=== PATIENT | female | born 1940 | race Caucasian/White ===

== ENCOUNTER 2024-05-23 14:06 | Inpatient (IN) | payer MEDICARE ==
[~2024-05-23] VITALS: Ht 165.1 cm; Wt 79.6 kg
[2024-05-23] MEDS ORDERED: LOSARTAN POTAS100 MG PO (14:19)
[2024-05-23] MEDS ORDERED: METOPROLOL SUCC50 MG PO (14:20)
[2024-05-23] MEDS ORDERED: AMLODIPINE BES2.5 MG PO (14:20)
[2024-05-23] MEDS ORDERED: OMEPRAZOLE20 MG PO (14:20)
[2024-05-23] MEDS ORDERED: HYDRALAZINE HCL25 MG PO (14:21)
[2024-05-23 14:26] LABS: BASOPHILS 1.2 % (0-2); EOSINOPHILS 3.7 % (0-6); HEMATOCRIT 33.4 % (35.0-50.0); HEMOGLOBIN 11.8 g/dL (12.0-18.0); LYMPHOCYTES 20.2 % (24-44); MCH 32.1 (27-36); MCHC 35.3 g/dl (30-36); MCV 90.9 fl (81-99); MONOCYTES 8.7 % (0-12); NEUTROPHILS 66.2 % (39-80); PLATELET COUNT 365 K/uL (140-440); RBC 3.67 M/ul (4.3-5.7)
[2024-05-23 14:41] LABS: ALBUMIN/GLOBULIN RATIO 1.03 (1.1-2.4); ANION GAP 16.7 (7-21); BILIRUBIN, TOTAL 0.7 ng/dL (0.2-1.0); BUN/CREATININE RATIO 11.29 (6.0-28.6); CALCIUM 9.6 mg/dL (8.5-10.1); CREATININE, SERUM 1.24 mg/dL (0.55-1.02); POTASSIUM 3.7 mmol/L (3.5-5.1); PROTEIN, TOTAL 7.9 g/dL (6.4-8.2)
[2024-05-23 16:05] LABS: BILIRUBIN, URINE POSITIVE (negative); BLOOD/HGB, URINE TRACE-L (Negative); KETONE, URINE SMALL (Negative); LEUK ESTERASE, URINE NEGATIVE (negative); NITRITE, URINE NEGATIVE (negative)
[2024-05-23 16:11] LABS: CRYSTALS, URINE NONE SEEN (0-1+); RED BLOOD CELLS, URINE 0-1 /hpf (0-5); WHITE BLOOD CELLS, URINE 21-40 /HPF (0-5)
[2024-05-23 16:12] LABS: BACTERIA, URINE RARE /hpf (negative)
[2024-05-23 16:14] LABS: CASTS, URINE HYALINE 1+ \\lpf; COLLECTION TYPE, URINE CLEAN CATCH; REFLEX CULTURE, URINE No (No)
[2024-05-23] MEDS ORDERED: METOPROLOL SUCCINATE 25 MG TABCR PO ONE ×2 (16:15→16:30)
[2024-05-23] MEDS ORDERED: hydrALAZINE HCL 20 MG/ML VIAL IV ONE (16:15)
[2024-05-23] MEDS ORDERED: ADENOSINE 3 MG/ML VIAL ONE (17:59)
[2024-05-23] MEDS ORDERED: dilTIAZem HCL 25 MG/5 ML VIAL IV ONE ×2 (18:15→20:00)
[2024-05-23] MEDS ORDERED: SODIUM CHLORIDE 0.9% 1,000 ML IV PRN (18:15)
[2024-05-23] MEDS ORDERED: ADENOSINE 3 MG/ML VIAL IV ONE (18:15)
[2024-05-23] MEDS ORDERED: DILTIAZEM HCl/D5W 125 ML IV SCH (19:45)
[2024-05-23] MEDS ORDERED: SODIUM CHLORIDE 0.9% 1,000 ML IV SCH (20:15)
[2024-05-23] MEDS ORDERED: MAGNESIUM SULFATE 2 GM/50 ML BAG IV ONE (20:45)
[2024-05-23] MEDS ORDERED: METOPROLOL SUCCINATE 100 MG TABCR PO SCH (20:57)
[2024-05-23] MEDS ORDERED: APIXABAN 5 MG TAB PO SCH (21:00)
--- NOTE | 2024-05-23 21:05 | NUR ---
PATIENT TO ROOM 127 VIA [facility] AFTER REPORT FROM ED RN CECILIA RECEIVED. PATIENT AMBULATED WITH SBA TO BED FROM [facility]. TOLERATED WELL. AOX3. INTRODUCED TO NURSING STAFF, ORIENTED TO ROOM AND CALL LIGHT FUNCTIONS AND SAFETY EDUCATION PROVIDED. PATIENT VERBALIZED UNDERSTANDING.
[2024-05-23 21:08] VITALS: BP 159/144; BP 178/57
[2024-05-23] MEDS ORDERED: METOPROLOL TARTRATE 50 MG TAB PO SCH (21:15)
[2024-05-23] MEDS ORDERED: ACETAMINOPHEN 325 MG TAB PO PRN (21:30)
[2024-05-23] MEDS ORDERED: ondansetron HCL 4 MG/2 ML VIAL IV PRN (21:30)
[2024-05-23 22:00] VITALS: BP 176/66
[2024-05-23] MEDS ORDERED: PANTOPRAZOLE SODIUM 40 MG TABEC PO SCH (22:15)
[2024-05-23 22:30] VITALS: BP 180/57
[2024-05-23] MEDS ORDERED: hydrALAZINE HCL 20 MG/ML VIAL IV PRN (22:30)
[2024-05-23 23:00] VITALS: BP 176/65
[2024-05-23 23:15] VITALS: BP 157/88
[2024-05-24] VITALS (15 sets, daily range): BP systolic 125–186; BP diastolic 40–115
--- NOTE | 2024-05-24 00:38 | NUR ---
PATIENT USED CALL LIGHT FOR ASSISTANCE UP TO COMMODE. PATIENT COMPLAINS OF MILD HEADACHE, DOES NOT ASSIGN NUMERICAL VALUE AND ALSO DECLINES TYLENOL. ASSESSMENT CHARTED. ASSISTED WITH POSITIONING ONCE BACK IN BED. CALL LIGHT IN REACH; BED EXIT ALARM ON.
--- NOTE | 2024-05-24 01:50 | NUR ---
PATIENT RESTING IN BED WITH EYES CLOSED. RESPIRATIONS EVEN AND UNLABORED. REMAINS IN SINUS RHYTHM, HR IN THE 60S. CALL LIGHT IN REACH, BED EXIT ALARM ON.
--- NOTE | 2024-05-24 02:50 | NUR ---
PATIENT USED CALL LIGHT TO REQUEST ASSISTANCE GETTING UP TO VOID. AMBULATED TO BATHROOM, TOLERATED ACTIVITY WELL. HR REMAINED IN THE 70S, SINUS RHTHYM. BACK TO BED. C/O OF DISCOMFORT IN HOSPITAL BED. OFFERED PILLOW SUPPORT BUT PATIENT DECLINED. DENIES OTHER NEEDS AT THIS TIME. CALL LIGHT IN REACH.
--- NOTE | 2024-05-24 04:40 | NUR ---
PATIENT AWAKE IN BED. ASSESSMENT CHARTED. PATIENT COMPLAINS OF HEADACHE. FACE APPEARS FLUSHED. 0400 BP WAS 186/60. PRN HYDRALAZINE ORDERED FOR SBP > 190. CONTINUE TO TREND BP Q1H. PATIENT ALSO COMPLAINS OF GENERALIZED ACHES FROM DISCOMFORT IN BED. OUT OF BED TO CHAIR. WARM BLANKETS PROVIDED WELL PILLOW SUPPORT. PATIENT REPORTS IMPROVEMENT IN HER GENERALIZED ACHES WHILE UP. PATIENT IS IN SINUS BRADYCARDIA ON TELEMETRY WITH HR IN THE HIGH 50S. REMAINS ON ROOM AIR WITH O2 SATS 97-99%. CALL LIGHT IN REACH.
--- NOTE | 2024-05-24 05:15 | NUR ---
LAB IN ROOM TO DRAW BLOOD AND NOTED BLOOD ON BLANKET. THIS RN TO ROOM AND FOUND LEUER FROM IV DISCONNECTED. IV SCRUBBED WITH ALCOHOL WIPE AND NEW LEUER PLACED. GOOD BLOOD RETURN FROM IV AND FLUSHES EASILY. WARM BLANKETS PROVIDED. PATIENT REFUSED GOWN CHANGE AT THIS TIME.
--- NOTE | 2024-05-24 05:18 | NUR ---
LATE ENTRY FROM 05/23/24 21:30 PATIENT HAD NS BOLUS ORDER FROM ED. PATIENT RECEIVED FROM ED WITH IVF RUNNING AT 100ML/HR. REVIEWED ORDER WITH DR. HYATT. ORDER RECEIVED TO CONTINUE AT 100ML/HR X1 LITER CURRENTLY INFUSING.
[2024-05-24 05:29] LABS: BASOPHILS 1.4 % (0-2); EOSINOPHILS 5.8 % (0-6); HEMATOCRIT 27.1 % (35.0-50.0); HEMOGLOBIN 9.5 g/dL (12.0-18.0); LYMPHOCYTES 15.3 % (24-44); MCH 31.5 (27-36); MCHC 35.1 g/dl (30-36); MCV 89.8 fl (81-99); MONOCYTES 9.3 % (0-12); NEUTROPHILS 68.2 % (39-80); PLATELET COUNT 298 K/uL (140-440); RBC 3.02 M/ul (4.3-5.7); RDW 12.9 (10.5-15.0)
[2024-05-24 05:39] LABS: ANION GAP 11.4 (7-21); BUN/CREATININE RATIO 11.32 (6.0-28.6); CALCIUM 8.9 mg/dL (8.5-10.1); CREATININE, SERUM 1.06 mg/dL (0.55-1.02); MAGNESIUM 1.7 mg/dL (1.8-2.4); POTASSIUM 3.4 mmol/L (3.5-5.1)
--- NOTE | 2024-05-24 06:15 | NUR ---
PATIENT UP TO BATHROOM TO VOID. REPORTS HEADACHE HAS IMPROVED. FACE NO LONGER FLUSHED. BACK TO CHAIR. CALL LIGHT IN REACH.
[2024-05-24] MEDS ORDERED: MAGNESIUM SULFATE 2 GM/50 ML BAG IV SCH (07:00)
[2024-05-24] MEDS ORDERED: POTASSIUM CHLORIDE 10 MEQ TABCR PO ONE ×2 (07:00→12:00)
--- NOTE | 2024-05-24 08:30 | NUR ---
Assessment complete and medications administered. Patient up to BR to void and then back to bed. Breakfast tray delivered. IV magnesium infusing per order. Coffee and water provided. Pt VSS, A+O, on RA. geospatial technologist in room at this time.
[2024-05-24] MEDS ORDERED: PANTOPRAZOLE SODIUM 40 MG TABEC PO SCH (09:00)
[2024-05-24] MEDS ORDERED: FLU VACC TS2024(65UP)/MF59C/PF 1 EACH SYR IM SCH (09:00)
[2024-05-24] MEDS ORDERED: AMLODIPINE BESYLATE 10 MG TAB PO SCH (09:00)
[2024-05-24] MEDS ORDERED: LOSARTAN POTASSIUM 50 MG TAB PO SCH (09:00)
[2024-05-24] MEDS ORDERED: LOSARTAN POTASSIUM 100 MG TAB PO SCH (09:00)
[2024-05-24] MEDS ORDERED: AMLODIPINE BESYLATE 5 MG TAB PO SCH (09:00)
--- NOTE | 2024-05-24 10:30 | NUR ---
Patient saline locked post mag rider infusion. Fresh water provided, up to BR for void. No further needs. Call light in reach.
[2024-05-24] MEDS ORDERED: PHARMACY RENAL DOSE ADJUSTMENT 1 DOSE MISC PO SCH (12:00)
[2024-05-24] MEDS ORDERED: hydrALAZINE HCL 25 MG TAB PO SCH (12:28)
--- NOTE | 2024-05-24 12:30 | NUR ---
Patient resting in bed with eyes closed, even and unlabored respirations. pt expressed desire to nap after "not great sleep last night", allowed at this time, made plan for therapies later.
[2024-05-24] MEDS ORDERED: POTASSIUM CHLORIDE 10 MEQ TABCR ONE (14:13)
[2024-05-24] MEDS ORDERED: hydrALAZINE HCL 10 MG TABLET PO SCH (14:20)
--- NOTE | 2024-05-24 15:15 | NUR ---
Patient up with physical therapy in room and walked in hallway. Linens changed after patient/RN soap and water wipedown in bathroom. Pt tolerates well in NSR. VSS. Fresh water provided. Pt requests something to eat, kitchen makes deli sandwich for pt. No further needs at this time.
--- NOTE | 2024-05-24 17:05 | NUR ---
Dinner tray in to patient, resting in bed, no needs at this time. VSS.
--- NOTE | 2024-05-24 20:46 | NUR ---
SHIFT REPORT RECEIVED FROM JAVIRE CARRERA. PATIENT UP TO BR TO VOID USING CANE. INDEPENDENTLY PERFORMED HS CARES. AO X3. REPORTS MILD HEADACHE BUT DECLINES PRN TYLENOL. BACK TO BED. VS CHARTED AND HS MEDICATIONS GIVEN AFTER HR AND BP REVIEWED FOR PARAMETERS. FRESH WATER PROVIDED. CALL LIGHT IN REACH.
[2024-05-24] MEDS ORDERED: MELATONIN 3 MG TAB PO SCH (21:00)
--- NOTE | 2024-05-24 22:14 | NUR ---
PATIENT ATTEMPTED TO GET UP WITHOUT ASSISTANCE. BED ALARM ACTIVATED. ASSISTED PATIENT UP TO BR TO VOID. BACK TO BED. DENIES FURTHER NEEDS OR CONCERNS. CALL LIGHT IN REACH AND BED ALARM ON. RE-EDUCATED ON CALLING FOR ASSISTANCE TO GET UP. PATIENT VERBALIZED UNDERSTANDING.
--- NOTE | 2024-05-24 23:02 | NUR ---
PATIENT RESTING IN BED WITH EYES CLOSED. RESPIRATIONS EVEN AND UNLABORED. SINUS DAY IN THE HIGH 50S OCCASIONALLY LOW 60S ON TELEMETRY. SPO2 98% RA. CALL LIGHT IN REACH WITH BED EXIT ALARM ON.
[2024-05-25] VITALS (9 sets, daily range): BP systolic 138–190; BP diastolic 49–71
--- NOTE | 2024-05-25 01:05 | NUR ---
PATIENT USED CALL LIGHT TO REQUEST ASSISTANCE UP TO BR TO VOID. VOIDED 250ML. BACK TO BED. LL LEAD NOTED TO HAVE COME OFF. REPLACED ALL LEADS T WAVE MORPHOLOGY APPEARED TO HAVE CHANGED. PATIENT DENIES CHEST PAIN OR SOB. DOES ENDORSE CONTINUES BACK PAIN FROM THE HOSPITAL BED. REVIEWED TELEMETRY AFTER LEADS REPLACED AND PATIENT SETTLED IN BED; APPEARS TO HAVE RETURN TO PREVIOUS MORPHOLOGY.
--- NOTE | 2024-05-25 03:04 | NUR ---
ST ELEVATION ALARMS NOTED ON TELEMETRY. EKG OBTAINED. PATIENT DENIES CHEST PAIN, NAUSEA, OR SOB. DENIES PAIN IN SHOULDERS OR ARMS BUT DOES CONTINUE TO ENDORSE BACK PAIN; HOWEVER, REPORTS IT IS ONGOING SINCE ADMISSION D/T DISCOMFORT FROM HOSPITAL BED. DR. HYATT NOTIFIED AND EKG SENT TO PROVIDER TO REVIEW BY MEDICAL SOCIOLOGIST.
--- NOTE | 2024-05-25 03:14 | NUR ---
DR. HYATT REVIEWED EKG. ORDER RECEIVED TO ADD ON TROPONIN LEVEL TO AM LABS.
--- NOTE | 2024-05-25 03:26 | NUR ---
PATIENT UP TO BR TO VOID 300ML CLEAR YELLOW URINE. UP TO CHAIR AFTER BATHROOM. WARM BLANKETS PROVIDED, FRESH WATER GIVEN. PATIENT VERBALIZED UNDERSTANDING TO CALL FOR ASSISTANCE WHEN WANTING TO GET UP. CALL LIGHT AND PERSONAL ITEMS IN REACH.
--- NOTE | 2024-05-25 03:45 | NUR ---
PATIENT NOTED TO BE DESATTING TO 87-88%. NASAL CANNULA FOUND OUT OF THE NARES AND ON TOP OF PT'S NOSE. REPLACED NC. PATIENT REQUESTS LIP MOISTURIZER, CHAPSTICK PROVIDED. ASSESSMENT CHARTED. PATIENT'S BRIEF CHANGED FOR VERY SMALL SMEAR OF STOOL. JAYJAY/CATH CARE COMPLETED. PARTIAL LINEN CHANGE COMPLETED. PATIENT BOOSTED AND REPOSITIONED WITH PILLOW SUPPORT. VILLALTA BAG DRAINED FOR 850ML LIGHT CLEAR YELLOW URINE. DURING TURNING AND REPOSITIONING, PATIENT WAS SHORT AND HAD INCREASED WOB; O2 FLOW INCREASED TO 3L DURING ACTIVITY AND REDUCED BACK TO 1L WHEN COMPLETE. SPO2 95% 1L NC WHEN AT REST. PATIENT IS AFEBRILE. DENIES PAIN, NEEDS OR CONCERNS. CALL LIGHT IN REACH.
--- NOTE | 2024-05-25 04:14 | NUR ---
PATIENT WISHED TO GET BACK TO BED. CONTINUED TO COMPLAIN ABOUT BACK PAIN. PATIENT WILL NOT ASSIGN NUMERICAL VALUE TO PAIN, RATHER STATES "IT JUST HURTS, I AM NOT USED TO LYING IN BED". REPORTS PAIN IS IN HER LOW BACK "BY MY WAIST". PRN TYLENOL OFFERED BUT PATIENT DECLINED. ASSISTED BACK TO BED. OFFERED TYLENOL AGAIN PATIENT CONTINUED TO MOAN IN DISCOMFORT BUT SHE CONTINUES TO REFUSE. CALL LIGHT AND PERSONAL ITEMS IN REACH.
--- NOTE | 2024-05-25 04:54 | NUR ---
PATIENT USES CALL LIGHT TO REQUEST ASSISTANCE TO BR TO VOID. BACK TO BED. PATIENT COMPLAINS BOTH BED AND CHAIR CAUSE DISCOMFORT. OFFERED WAFFLE MATTRESS OVERLAY, PATIENT DECLINED. PATIENT ASKS "ARE YOU THE ONE THAT OFFERED TYLENOL?" PATIENT NOW AGREEABLE TO TAKE TYLENOL. CONTINUES TO NOT ENDORSE A NUMBERICAL VALUE TO PAIN RATHER STATES, "IT JUST HURTS". TYLENOL GIVEN PER EMAR, FRESH WATER PROVIDED. CALL LIGHT IN REACH.
[2024-05-25 05:50] LABS: BASOPHILS 1.1 % (0-2); EOSINOPHILS 9.8 % (0-6); HEMATOCRIT 28.3 % (35.0-50.0); HEMOGLOBIN 9.7 g/dL (12.0-18.0); LYMPHOCYTES 22.1 % (24-44); MCH 31.7 (27-36); MCHC 34.4 g/dl (30-36); MCV 92.1 fl (81-99); MONOCYTES 9.9 % (0-12); NEUTROPHILS 57.1 % (39-80); PLATELET COUNT 277 K/uL (140-440); RBC 3.07 M/ul (4.3-5.7)
[2024-05-25 06:03] LABS: ANION GAP 12.8 (7-21); BUN/CREATININE RATIO 14.03 (6.0-28.6); CALCIUM 8.8 mg/dL (8.5-10.1); CREATININE, SERUM 1.14 mg/dL (0.55-1.02); POTASSIUM 3.8 mmol/L (3.5-5.1)
--- NOTE | 2024-05-25 06:55 | NUR ---
PATIENT UP TO BATHROOM TO VOID. THIS RN INQUIRED IF TYLENOL HELPED WITH BACK PAIN, PATIENT STATES "I DON'T KNOW, MUST HAVE SINCE I SLEPT FOR A BIT". BACK TO BED. CALL LIGHT IN REACH.
[2024-05-25] MEDS ORDERED: SODIUM CHLORIDE 1 GM TAB PO ONE (07:15)
[2024-05-25 07:26] LABS: TSH, 3RD GENERATION 1.499 uIU/mL (0.358-3.740)
--- NOTE | 2024-05-25 08:23 | NUR ---
Scheduled medications administered and assessment complete. Patient ambulates to BR for void of 300ml, clear urine. Back to chair for breakfast. Hypertensive at this time-- all cardiac meds administered, will monitor. Systolic murmur noted. Pt has no complaints. Call light in reach.
[2024-05-25] MEDS ORDERED: AMLODIPINE BESYLATE 2.5 MG TAB PO SCH (09:00)
--- NOTE | 2024-05-25 11:33 | NUR ---
PATIENT ALERT AND ORIENTED IN RECLINER. LIVES ALONE IN SINGLE LEVEL HOME. NO STAIRS. STATES SHE HAS A COUSIN WHO LIVES VERY CLOSE. SHE HAS A SHOUWER CHAIR, CANE AND HER WALKER IS CURRENTLY AT A FAMILY MEMBER'S HOME IN [place]. SHE DRIVES AT BASELINE. DENIES DIFFICULTY PAYING UTILITES, OBTAINING FOOD OR MEDICATIONS. DISCUSSED DC PLAN. SHE CURRENTLY PLANS TO RETURN HOME. DISCUSSED THERAPY OPTIONS. SHE IS OPEN TO THERAPIES AT DISCHARGE.
[2024-05-25 12:24] LABS: ANION GAP 11.9 (7-21); BUN/CREATININE RATIO 13.79 (6.0-28.6); CALCIUM 8.7 mg/dL (8.5-10.1); CREATININE, SERUM 1.16 mg/dL (0.55-1.02); POTASSIUM 3.9 mmol/L (3.5-5.1)
[2024-05-25] MEDS ORDERED: AMLODIPINE BESYLATE 2.5 MG TAB PO ONE (13:15)
--- NOTE | 2024-05-25 14:06 | NUR ---
ALERT AND ORIENTED IN RECLINER. FAMILY MEMBER IN ROOM. PATIENT AND FAMILY MEMBER STATES SHE IS ABSOLUTELY NOT GOING TO A SNF. SHE IS GOING TO GO HOME. COUSIN STATES IF SHE IS GIVEN EXERCISE PRINT OUTS, SHE WILL WORK WITH PATIENT ON EXERCISES AT HOME. PATIENT'S MARIANA IS A CAREGIVER THROUGH [employer]. SHE IS WILLING TO ALSO ASSIST WITH PATIENT CARES AT HOME NEEDED. WALKER IS AVAILABLE TO PATIENT, HER COUSIN- LAINE, STATES SHE HAS ONE IN STORAGE THAT PATIENT MAY USE. PT UPDATED.
--- NOTE | 2024-05-25 17:38 | NUR ---
Patient had improvement on this shift; Pt A+O, RR even and unlabored on RA, HRR, bradycardic however. HTN addressed by MD with medication changes. Pt worked with PT/OT, which recommended JOE/ RN for patient support outpatient, patient declines at this time. IV flushes well. Lungs clear, bowel tones active, up with FWW to BR to void. Good appetite. Calls appropriately.
--- NOTE | 2024-05-25 19:55 | NUR ---
REPORT RECEIVED FROM JAVIER CARRERA. PATIENT RESTING IN BED WITH EYES CLOSED. RESPIRATIONS EVEN AND UNLABORED.
--- NOTE | 2024-05-25 20:53 | NUR ---
ADVERTISING SALES CONSULTANT HELPED PT INTO THE BATHROOM. WHILE PT WAS IN BATHROOM, ADVERTISING SALES CONSULTANT PLACE A AIR MATTRESS ON BED AND THEN HELPED PT BACK TO BED. ADVERTISING SALES CONSULTANT LEFT PT WITH BED ALARM ALARM ON AND CALL LIGHT WITHIN REACH.
[2024-05-25] MEDS ORDERED: carvediloL 6.25 MG TAB PO SCH (21:00)
[2024-05-25] MEDS ORDERED: hydrALAZINE HCL 25 MG TAB PO SCH (21:00)
--- NOTE | 2024-05-25 21:11 | NUR ---
DR. HYATT NOTIFIED OF 11 BEAT RUN OF PVCS. ORDER RECEIVED FOR BMP AND MG LEVELS TO BE DRAWN WITH ELECTROLYTE REPLACMENT FOR A GOAL OF POTASSIUM OF 4 AND GOAL OF MAGNESIUM OF 2.
--- NOTE | 2024-05-25 21:20 | NUR ---
ASSESSMENT CHARTED. PATIENT IS ALERT AND ORIENTED, HOWEVER FORGETFUL. WHEN ASKED HOW PT WENT AND HOW SHE IS ADJUSTING TO USING A WALKER. PATIENT STATES "I DON'T REMEMBER WORKING WITH PT" AND "HAVE I BEEN USING A WALKER?" PEDIATRIC ANESTHESIOLOGIST HAD PLACED AN AIR MATTRESS OVERLAY ON THE BED. PATIENT REPORTS BACK PAIN IS IMPROVED BUT STILL SLIGHTLY PAINFUL. PRN TYLENOL GIVEN WITH HS MEDS. PATIENT REPORTS SHE HASNT GOTTEN MUCH REST. WILL PROMOTE RESTFUL ENVIRONMENT. CALL LIGHT IN REACH. BED EXIT ALARM ON.
[2024-05-26] VITALS (11 sets, daily range): BP systolic 104–177; BP diastolic 43–86
--- NOTE | 2024-05-26 00:42 | NUR ---
PATIENT RESTING IN BED WITH EYES CLOSED. REPOSITIONS INDEPENDENTLY IN BED. SPO2 95%, RR 13. SINUS DAY ON MONITOR WITH RATE HIGH 50S-60S. CALL LIGHT IN REACH, BED EXIT ALARM ON.
--- NOTE | 2024-05-26 03:34 | NUR ---
PATIENT WOKE TO SOFT TOUCH. DENIES PAIN. REPORTS THE WAFFLE OVERLAY HAS IMPROVED HER ABILITY TO SLEEP AND SHE NO LONGER HAS BACK PAIN. PARTICIPATES IN ASSESSMENT. OOBTBR TO VOID THEN BACK TO BED. EDUCATION PROVIDED ON MONITORING FLUID INTAKE IN LIGHT OF LOW NA. CALL LIGHT AND PERSONAL ITEMS IN REACH. BED EXIT ALARM ON.
[2024-05-26 05:37] LABS: BASOPHILS 1.8 % (0-2); HEMATOCRIT 27.3 % (35.0-50.0); HEMOGLOBIN 9.6 g/dL (12.0-18.0); LYMPHOCYTES 23.9 % (24-44); MCH 31.9 (27-36); MCHC 35.2 g/dl (30-36); MCV 90.8 fl (81-99); MONOCYTES 11.4 % (0-12); NEUTROPHILS 50.9 % (39-80); PLATELET COUNT 256 K/uL (140-440); RBC 3.01 M/ul (4.3-5.7); RDW 13.1 (10.5-15.0)
[2024-05-26 05:51] LABS: BUN/CREATININE RATIO 14.91 (6.0-28.6); CALCIUM 8.6 mg/dL (8.5-10.1); CREATININE, SERUM 1.14 mg/dL (0.55-1.02); MAGNESIUM 1.7 mg/dL (1.8-2.4)
--- NOTE | 2024-05-26 06:02 | NUR ---
PATIENT WAKES EASILY FOR VS. FRESH WATER PROVIDED. PATIENT REPORTS SHE SLEPT BETTER TONIGHT AND DENIES FURTHER BACK PAIN. REVIEWED POC, PATIENT VERBALIZED UNDERSTANDING BUT WILL NEED REINFORCED. CALL LIGHT IN REACH, BED EXIT ALARM ON.
[2024-05-26] MEDS ORDERED: MAGNESIUM SULFATE 2 GM/50 ML BAG IV ONE (07:15)
--- NOTE | 2024-05-26 08:01 | NUR ---
REPORT RECEIVED FROM JAVIER SMITH. PT AWAKE AND UP TO RESTROOM THEN CHAIR FOR BREAKFAST. WASHED FACE AND HANDS WITH WARM CLOTH. PT THRILLED WITH BREAKFAST. STATES SHE IS FEELING MUCH BETTER AFTER SLEEPING FAIRLY WELL LAST NIGHT.
[2024-05-26] MEDS ORDERED: AMLODIPINE BESYLATE 5 MG TAB PO SCH (09:00)
--- NOTE | 2024-05-26 09:18 | NUR ---
ASSESSMENT COMPLETED, MEDS ADMINISTERED. PT IS SITTING UP IN CHAIR TALKING ON PHONE. CALL LIGHT AND PERSONAL BELONGINGS WITHIN REACH. PT GIVEN SECOND CUP OF COFFEE PER REQUEST. NO FURTHER NEEDS AT THIS TIME.
--- NOTE | 2024-05-26 09:44 | NUR ---
assumed care, pt up in chair with call light.
--- NOTE | 2024-05-26 10:23 | NUR ---
CONTINUED PLAN TO GO HOME WITH HELP FROM FAMILY MEMBERS AND [facility] [place]. NO OTHER CM NEEDS AT THIS TIME.
--- NOTE | 2024-05-26 10:24 | NUR ---
VISITED DURING SPIRITUAL CARE ROUNDS. PT APPEARED TO BE SLEEPING. DID NOT DISTURB. PROVIDED PRAYER.
--- NOTE | 2024-05-26 11:26 | NUR ---
pt amb to br void 400 ml, call to pcp next f/u appt 06/04 at 1:20 pm on dc papers.
--- NOTE | 2024-05-26 13:06 | EKG ---
[facility] [address] [facility] [place] [address] Signed Normal sinus rhythm with sinus arrhythmia Normal ECG No previous ECGs available Confirmed by Umesh Lee MD ([id number]) on 05/26/2024 1:06:24 PM Electronically Signed By: UMESH LEE MD 05/26/24 1306 PATIENT NAME: YSABEL HARMON PARVIZ Electrocardiogram DATE OF : 40 PHYSICIAN: UMESH LEE MD REPORT #: [id number] REPORT IS CONFIDENTIAL AND NOT TO BE RELEASED WITHOUT AUTHORIZATION
--- NOTE | 2024-05-26 13:09 | EKG ---
[facility] [address] [facility] [place] [address] Signed Supraventricular tachycardia Nonspecific intraventricular conduction delay Minimal voltage criteria for LVH, may be normal variant ( [place] product ) Nonspecific ST and T wave abnormality Abnormal ECG When compared with ECG of 23-May-2024 Supraventricular tachycardia has replaced Normal sinus rhythm Confirmed by Umesh Lee MD ([id number]) on 05/26/2024 1:09:21 PM Electronically Signed By: UMESH LEE MD 05/26/24 1309 PATIENT NAME: YSABEL HARMON PARVIZ Electrocardiogram DATE OF : 40 PHYSICIAN: UMESH LEE MD REPORT #: [id number] REPORT IS CONFIDENTIAL AND NOT TO BE RELEASED WITHOUT AUTHORIZATION
--- NOTE | 2024-05-26 13:10 | EKG ---
[facility] [address] [facility] [place] [address] Signed Atrial fibrillation with rapid ventricular response with premature ventricular or aberrantly conducted complexes Nonspecific ST abnormality Abnormal ECG When compared with ECG of 23-MAY-2024 14:39, (Unconfirmed) Atrial fibrillation has replaced Sinus rhythm Vent. rate has increased BY 51 BPM Non-specific change in ST segment in Inferior leads ST now depressed in Anterolateral leads T wave inversion now evident in Inferior leads Confirmed by Umesh Lee MD ([id number]) on 05/26/2024 1:09:57 PM Electronically Signed By: UMESH LEE MD 05/26/24 1310 PATIENT NAME: YSABEL HARMON PARVIZ Electrocardiogram DATE OF : 40 PHYSICIAN: UMESH LEE MD REPORT #: [id number] REPORT IS CONFIDENTIAL AND NOT TO BE RELEASED WITHOUT AUTHORIZATION
--- NOTE | 2024-05-26 13:12 | EKG ---
[facility] [address] [facility] [place] [address] Signed Normal sinus rhythm Prolonged QT Abnormal ECG When compared with ECG of 23-MAY-2024 18:08, (Unconfirmed) Sinus rhythm has replaced Atrial fibrillation Vent. rate has decreased BY [address] no longer depressed in Anterolateral leads T wave inversion no longer evident in Inferior leads Confirmed by Umesh Lee MD ([id number]) on 05/26/2024 1:12:36 PM Electronically Signed By: UMESH LEE MD 05/26/24 1312 PATIENT NAME: YSABEL HARMON PARVIZ Electrocardiogram DATE OF : 40 PHYSICIAN: UMESH LEE MD REPORT #: [id number] REPORT IS CONFIDENTIAL AND NOT TO BE RELEASED WITHOUT AUTHORIZATION
--- NOTE | 2024-05-26 13:14 | NUR ---
PT AMB TO BR WITH FWW, VOID 4OOML BACK TO CHAIR. CALL LIGHT IN REACH. ALERT AND ORIENTED. 146/47 (73) ON FLOOR.
--- NOTE | 2024-05-26 14:33 | NUR ---
REPORT FROM SCOTTIE CARRANZA RN
--- NOTE | 2024-05-26 14:58 | EKG ---
[facility] [address] [facility] [place], [place] [address] Signed Normal sinus rhythm Septal infarct , age undetermined Abnormal ECG When compared with ECG of 23-MAY-2024 20:32, (Unconfirmed) No significant change was found Confirmed by Umesh Lee MD ([id number]) on 05/26/2024 2:58:06 PM Electronically Signed By: UMESH LEE MD 05/26/24 1458 PATIENT NAME: YSABEL HARMON PARVIZ Electrocardiogram DATE OF : 40 PHYSICIAN: UMESH LEE MD REPORT #: [id number] REPORT IS CONFIDENTIAL AND NOT TO BE RELEASED WITHOUT AUTHORIZATION
--- NOTE | 2024-05-26 15:35 | NUR ---
PATIENT COMPLETES PT WITH WALKING IN STOCK AND DOES 1 STAIR. BACK TO ROOM. PATIENT REPORTS SOME NAUSEA. VSS. PATIENT BACK IN CHAIR IN ROOM
--- NOTE | 2024-05-26 15:48 | NUR ---
patient presses call light and reprots a sudden urge to have diarrhea and severe nausea. patient ambulates with fww to bathroom and has 1 x liquid stool. medicated for nausea see emar. patient continues having dry heaves. patient requesting to get back in bed.
--- NOTE | 2024-05-26 15:56 | NUR ---
PATIENT ON TOILET AND BECOMES UNRESPONSIVE. NON RESPONSIVE TO VERBAL RESPONSE AND STERNAL RUB. STARTS TO VOMIT. 50 ML OF EMESIS. RAPID RESPONSE CALLED. PATIENT ASSISTED BACK TO CHAIR THEN TO BED. PATEINT RESPONSIVE AND FOLLOWING COMMANDS WHEN BACK IN BED. RT AT BEDSIDE FOR STAT EKG. BLOOD SUGAR 122. CALL TO MD AND ORDERS FOR LAB AND UA. THIS RN REMAINS AT BEDSIDE
[2024-05-26 16:07] LABS: BASOPHILS 1.2 % (0-2); EOSINOPHILS 9.5 % (0-6); HEMATOCRIT 30.9 % (35.0-50.0); HEMOGLOBIN 10.8 g/dL (12.0-18.0); LYMPHOCYTES 22.8 % (24-44); MCH 31.9 (27-36); MCHC 34.9 g/dl (30-36); MCV 91.3 fl (81-99); MONOCYTES 9.5 % (0-12); PLATELET COUNT 307 K/uL (140-440); RBC 3.39 M/ul (4.3-5.7); RDW 13.4 (10.5-15.0)
--- NOTE | 2024-05-26 16:13 | NUR ---
MINI CATH COMPLETED BY SHOT POLISHER. PATIENT TOLERATES.
[2024-05-26 16:17] LABS: BILIRUBIN, URINE NEGATIVE (negative); BLOOD/HGB, URINE NEGATIVE (Negative); KETONE, URINE TRACE (Negative); LEUK ESTERASE, URINE NEGATIVE (negative); NITRITE, URINE NEGATIVE (negative)
[2024-05-26 16:22] LABS: ALBUMIN 3.5 g/dL (3.4-5.0); ALBUMIN/GLOBULIN RATIO 1.09 (1.1-2.4); BILIRUBIN, TOTAL 0.3 ng/dL (0.2-1.0); BUN/CREATININE RATIO 12.87 (6.0-28.6); CREATININE, SERUM 1.32 mg/dL (0.55-1.02); MAGNESIUM 2.1 mg/dL (1.8-2.4); PROTEIN, TOTAL 6.7 g/dL (6.4-8.2)
[2024-05-26 16:23] LABS: RED BLOOD CELLS, URINE 0-1 /hpf (0-5)
[2024-05-26 16:25] LABS: BACTERIA, URINE RARE /hpf (negative); CASTS, URINE HYALINE 2+ \\lpf; COLLECTION TYPE, URINE CATH; CRYSTALS, URINE NONE SEEN (0-1+); EPITHELIAL CELLS, URINE 0 /lpf (0-1+); REFLEX CULTURE, URINE No (No)
--- NOTE | 2024-05-26 17:44 | NUR ---
LARGE, SOFT/LOOSE STOOL CLEANED AND LINENS AND ATTENDS CHANGED. PATIENT REPORTS HAVING A HEADACHE AND HER STOMACH STILL HURTING. WANTS TO TRY TO EAT DINNER. DINNER TRAY PROVIDED. PATIENT GIVEN WARM BLANKET AND IS ON CELL PHONE AT THIS TIME TALKING TO A FRIEND.
[2024-05-26] MEDS ORDERED: SODIUM CHLORIDE 0.9% 1,000 ML IV SCH (18:00)
[2024-05-26] MEDS ORDERED: LORazepam 2 MG/ML VIAL IV PRN (18:15)
--- NOTE | 2024-05-26 18:23 | EKG ---
[facility] [address] [facility] [place] [address] Signed Sinus rhythm with 1st degree AV block Otherwise normal ECG No previous ECGs available Confirmed by Umesh Lee MD ([id number]) on 05/26/2024 6:23:35 PM Electronically Signed By: UMESH LEE MD 05/26/241822 PATIENT NAME: YSABEL HARMON PARVIZ Electrocardiogram DATE OF : 40 PHYSICIAN: UMESH LEE MD REPORT #: [id number] REPORT IS CONFIDENTIAL AND NOT TO BE RELEASED WITHOUT AUTHORIZATION
--- NOTE | 2024-05-26 18:34 | NUR ---
patient up to bedside commode to have 1 x liquid stool small amount. patient tolerates and denies nausea/lightheadedness. patient back to bed. warm blankets provided. call light given.
--- NOTE | 2024-05-26 19:19 | NUR ---
REPORT RECEIVED FROM JAVIER FUNEZ. PATIENT RESTING IN BED WITH EYES CLOSED. RESPIRATIONS APPEAR EVEN AND UNLABORED. SINUS DAY ON MONITOR WITH HR IN THE HIGH 50S/LOW 60S. SPO2 96% RA. CALL LIGHT IN REACH.
[2024-05-26] MEDS ORDERED: SODIUM CHLORIDE 0.9% 1,000 ML IV ONE (19:30)
--- NOTE | 2024-05-26 21:11 | NUR ---
PATIENT WAKES TO SOUND OF NURSE IN ROOM. ALERT TO SELF, PLACE, DATE BUT DISORIENTED TO TIME. PATIENT THOUGHT IT WAS MORNING. ASSISTED UP TO BSC, PATIENT VOIDED 250ML CONCENTRATED URINE. PATIENT DENIED DIZZINESS, LIGHTHEADNESS OR NAUSEA. BACK TO BED. IVF INFUSING. VS AND ASSESSMENT CHARTED. PATIENT REPORTS DESIRING TO GET MORE REST. WILL PROVIDE FOR RESTFUL ENVIRONMENT. PATIENT DID NOT RECALL THE EVENTS OF THE DAY OTHER THAN STATING "ALL THE SUDDEN THERE WERE 11 PEOPLE IN MY ROOM". CALL LIGHT IN REACH/EXIT ALARM ON 2125: CLARIFIED FLUID ORDER WITH DR. HYATT. ORDER RECEIVED TO INFUSE 1L OVER 2 HOURS.
--- NOTE | 2024-05-26 23:26 | NUR ---
PATIENT RESTING WITH EYES CLOSED. HR IN THE 60-70S, SINUS RHYTHM. O2 SAT 97% RA. CALL LIGHT IN REACH. BED EXIT ALARM ON FOR SAFETY.
[2024-05-27 00:02] VITALS: BP 141/51
--- NOTE | 2024-05-27 00:03 | NUR ---
IV PUMP ALARMING OCCLUSION. REMINDED PATIENT TO RELAX ARM IV IN HER AC, IV OTHERWISE REMAINS PATENT. VS CHARTED. PATIENT DENIES NEEDS.
--- NOTE | 2024-05-27 01:58 | NUR ---
PATIENT WOKE TO THIS RN ROUNDING IN ROOM. ASSISTED UP TO BSC TO VOID 200ML DARK YELLOW URINE. BACK TO BED, WARM BLANKET PROVIDED. REPORTS MILD LOW BACK PAIN BUT DECLINES PRN TYLENOL. PATIENT TURNING AND REPOSITIONING IN BED INDEPENDENTLY. CALL LIGHT IN REACH, BED EXIT ALARM ON FOR SAFETY.
--- NOTE | 2024-05-27 03:46 | NUR ---
PATIENT RESTING WITH EYES CLOSED. RESPIRATIONS EVEN AND UNLABORED. FACIAL EXPRESSION APPEARS RELAXED. RR 13 AT REST. HR 65, SINUS RHYTHM ON MONITOR. CALL LIGHT IN REACH WITH BED EXIT ALARM ON.
[2024-05-27 05:36] LABS: BASOPHILS 0.9 % (0-2); EOSINOPHILS 6.2 % (0-6); HEMATOCRIT 26.5 % (35.0-50.0); HEMOGLOBIN 9.3 g/dL (12.0-18.0); LYMPHOCYTES 14.1 % (24-44); MCH 32.1 (27-36); MCHC 35.1 g/dl (30-36); MCV 91.4 fl (81-99); MONOCYTES 8.1 % (0-12); NEUTROPHILS 70.7 % (39-80); PLATELET COUNT 246 K/uL (140-440); RDW 13.1 (10.5-15.0)
[2024-05-27 05:46] LABS: ANION GAP 10.8 (7-21); BUN/CREATININE RATIO 14.01 (6.0-28.6); CALCIUM 8.3 mg/dL (8.5-10.1); CREATININE, SERUM 1.07 mg/dL (0.55-1.02); MAGNESIUM 1.7 mg/dL (1.8-2.4); POTASSIUM 3.8 mmol/L (3.5-5.1)
[2024-05-27 05:51] VITALS: BP 143/41
--- NOTE | 2024-05-27 05:53 | NUR ---
PATIENT WOKE EASILY TO LAB IN ROOM TO DRAW BLOOD. PATIENT NEEDED TO VOID. AMBULATED TO BATHROOM WITH FWW AND GAIT BELT, CLOSE SBA. VOIDED 200 ML DARK YELLOW URINE. UP TO SINK TO BRUSH TEETH AND WASH FACE; CARES DONE BY PATIENT. AMBULATED TO CHAIR. TOLERATED ACTIVITY WELL. DENIED NAUSEA, LIGHTHEADEDNESS OR DIZZINESS. FRESH WATER AND CLEAR ENSURE GIVEN. VS CHARTED. PATIENT REPORTS SHE RESTED WELL OVERNIGHT. CALL LIGHT IN REACH; PATIENT VERBALIZED UNDERSTANDING TO CALL FOR ASSISTANCE IF SHE NEEDS TO GET UP.
[2024-05-27] MEDS ORDERED: MAGNESIUM SULFATE 2 GM/50 ML BAG IV SCH (07:45)
[2024-05-27] MEDS ORDERED: POTASSIUM CHLORIDE 10 MEQ TABCR PO ONE (07:45)
--- NOTE | 2024-05-27 08:03 | NUR ---
report from merritt umana resting in bed, call light in reach.
--- NOTE | 2024-05-27 08:10 | NUR ---
MORNING MEDICATION PROVIDED AND MAGNESIUM INFUSION STARTED. PT IN CHAIR IN ROOM. BREAKFAST PROVIDED TO PT. PT CALL LIGHT WITHIN REACH WELL PT BELONGINGS. NO FURTHER NEEDS AT THIS TIME.
--- NOTE | 2024-05-27 08:53 | NUR ---
PT SBA TO BATHROOM. IV FLUIDS PAUSED. PT INSTRUCTED TO PULL CORD WHEN FINISHED.
[2024-05-27] MEDS ORDERED: AMLODIPINE BESYLATE 2.5 MG TAB PO SCH (09:00)
[2024-05-27] MEDS ORDERED: METOPROLOL SUCCINATE 50 MG TABCR PO SCH (09:00)
[2024-05-27 09:32] VITALS: BP 136/49
[2024-05-27] MEDS ORDERED: ELIQUIS5 MG PO (09:40)
[2024-05-27] MEDS ORDERED: SODIUM CHLORIDE 0.9% 1,000 ML IV ONE (09:45)
--- NOTE | 2024-05-27 09:45 | NUR ---
DR. HYATT IN ROOM DISCUSSING PLAN OF CARE WITH PT. CONTINUE MAGNESIUM AND RECEIVE FLUID BOLUS PRIOR TO DISCHARGE. PT VERBALIZED UNDERSTANDING. BEDBATH COMPLETED WITH THIS RN TO ASSIST AND PT CHANGED INTO CLOTHES TO GO HOME.
--- NOTE | 2024-05-27 10:23 | NUR ---
this rn in with pt and family to give written dc inst. and education on a fib. pharmacy eddie in for medication education. iv fluids fusing.
[2024-05-27 10:44] VITALS: BP 146/46
--- NOTE | 2024-05-27 10:54 | NUR ---
SPOKE WITH PATIENT REGARDING DC PLAN. HOME HEALTH ORDERS, FACESHEET, NOTES, H&P AND DC SUMMARY FAXED TO [facility].
[2024-05-27 12:53] LABS: URINE OSMOLALITY 227 mOsm/kg (50-800)
== END 2024-05-27 10:58 | disposition home or self-care (01) | DRG 641 ==
LOC: ED 14:06 → CCU 19:04
PROVIDERS: Emergency Medicine; ADMIT Student in an Organized Health Care Education/Training Program; ATTEND Student in an Organized Health Care Education/Training Program
DX: E87.1 Hypo-osmolality and hyponatremia (principal); I47.10 Supraventricular tachycardia, unspecified; I48.91 Unspecified atrial fibrillation; I12.9 Hypertensive chronic kidney disease with stage 1 through stage 4 chronic kidney disease, or unspecified chronic kidney disease; N18.30 Chronic kidney disease, stage 3 unspecified; E83.52 Hypercalcemia; I16.0 Hypertensive urgency; E05.90 Thyrotoxicosis, unspecified without thyrotoxic crisis or storm; I08.3 Combined rheumatic disorders of mitral, aortic and tricuspid valves; E86.1 Hypovolemia; I27.20 Pulmonary hypertension, unspecified; K21.9 Gastro-esophageal reflux disease without esophagitis; Z88.0 Allergy status to penicillin; Z79.899 Other long term (current) drug therapy
CPT/HCPCS: 36415; 70450; 71045; 80048; 80053; 81001; 83735; 83935; 84300; 84439; 84443; 84484; 85025; 90694; 93005; 93010; 93306; 97161; 97165; 97530; A9270; J0360; J2405; J3475; J7030

== ENCOUNTER 2024-10-14 17:07 | Emergency (ER) | payer MEDICARE ==
[~2024-10-14] VITALS: Ht 165.1 cm; Wt 79.6 kg
[~2024-10-14 17:07] MED LIST: AMLODIPINE BES2.5 MG PO; ELIQUIS5 MG PO; HYDRALAZINE HCL25 MG PO; LOSARTAN POTAS100 MG PO; METOPROLOL SUCC50 MG PO; OMEPRAZOLE20 MG PO
[2024-10-14] MEDS ORDERED: DOXAZOSIN MESYLA2 MG PO (17:26)
[2024-10-14 17:33] LABS: EOSINOPHILS 3.3 % (0.7-5.8); HEMOGLOBIN 11.1 g/dL (11.2-15.7); LYMPHOCYTES 21.4 % (19.3-51.7); MCH 27.1 PG (25.6-32.2); MCHC 32.6 g/dL (32.2-35.5); MCV 83.1 fL (79.4-94.8); MONOCYTES 8.8 % (4.7-12.5); PLATELET COUNT 294 K/uL (182-369); RBC 4.09 M/uL (3.93-5.22)
[2024-10-14 17:42] LABS: ALBUMIN 4.1 g/dL (3.4-5.0); ALBUMIN/GLOBULIN RATIO 1.08 (1.1-2.4); ANION GAP 15.7 (7-21); BILIRUBIN, TOTAL 0.5 mg/dL (0.2-1.0); BUN/CREATININE RATIO 23.07 (6.0-28.6); CALCIUM 9.5 mg/dL (8.5-10.1); CREATININE, SERUM 1.56 mg/dL (0.55-1.02); MAGNESIUM 2.2 mg/dL (1.8-2.4); POTASSIUM 3.7 mmol/L (3.5-5.1); PROTEIN, TOTAL 7.9 g/dL (6.4-8.2)
[2024-10-14] MEDS ORDERED: SODIUM CHLORIDE 0.9% 500 ML IV PRN (17:45)
[2024-10-14] MEDS ORDERED: METOPROLOL TARTRATE 5 MG/5 ML VIAL IV ONE (17:45)
[2024-10-14] MEDS ORDERED: ondansetron HCL 4 MG/2 ML VIAL IV ONE (17:45)
[2024-10-14] MEDS ORDERED: ONDANSETRON 4 MG HOME.PACK SL ONE (18:30)
[2024-10-14] MEDS ORDERED: METOPROLOL SUCCINATE 25 MG TABCR PO ONE (18:30)
[2024-10-14 18:45] VITALS: BP 198/64
== END 2024-10-14 18:45 | disposition home or self-care (01) ==
LOC: ED 17:07
PROVIDERS: Emergency Medicine
DX: R11.2 Nausea with vomiting, unspecified (principal); I12.9 Hypertensive chronic kidney disease with stage 1 through stage 4 chronic kidney disease, or unspecified chronic kidney disease; N18.30 Chronic kidney disease, stage 3 unspecified; Z88.0 Allergy status to penicillin; Z79.01 Long term (current) use of anticoagulants
CPT/HCPCS: 36415; 80053; 83690; 83735; 85025; 96361; 96374; 96375; 99284-25; A9270; J2405; J7040